=== PATIENT | female | born 1950 | race African-American/Black ===

== ENCOUNTER 2025-02-08 22:29 | Inpatient (IN) | payer OTHER ==
[~2025-02-08] VITALS: Ht 172.7 cm; Wt 103.1 kg
[2025-02-08 22:47] VITALS: PULSE 79; RESP 17; O2SAT 95
--- NOTE | 2025-02-08 23:17 | DVH ---
EXAM: CT HEAD WITHOUT CONTRAST INDICATION: LLE weakness recent CVA, headache, frequent fall TECHNIQUE: CT of the head without intravenous contrast. Radiation Dose : 1. Head: CT Dose: CTDI volume is 62.66 mGy. Dose-length product is 2136.33 mGy*cm The dose indicators for CT are the volume Computed Tomography (CT) Dose Index (CTDIvol) and the Dose Length Product (DLP), and are measured in units of mGy and mGy-cm, respectively. These indicators are not patient dose, but values generated from the CT scanner acquisition factors. The report includes radiation exposure data for exposures received during this examination. COMPARISON: None FINDINGS: There is no evidence of acute intracranial hemorrhage, extra-axial collection, mass effect, midline s hift, herniation or hydrocephalus. The ventricles, sulci and cisterns are age appropriate. The arauz-white differentiation is intact. The visualized paranasal sinuses and mastoid air cells are clear. The surrounding soft tissues and osseous structures are unremarkable. IMPRESSION: 1. No acute intracranial abnormality. Radiation optimization: All CT scans at this facility use at least one of these dose optimization bart hniques: automated exposure control mA and/or kV adjustment per patient size (includes targeted exam s where dose is matched to clinical indication) or iterative reconstruction.
--- NOTE | 2025-02-08 23:21 | DVH ---
CHEST RADIOGRAPH Indication: cp Technique: Single frontal view of the chest was obtained COMPARISON: None FINDINGS: Lines and Tubes: None Lungs: Mild diffuse increased prominence of the pulmonary vasculature. No evidence of focal consolida tion. Pleura: No effusion. No pneumothorax. Cardiomediastinal contours: Unremarkable Bones: Unremarkable IMPRESSION: 1. No acute disease. Mild diffuse increased prominence of the pulmonary vasculature.
--- NOTE | 2025-02-08 23:29 | DVH ---
EXAM: CT LS SPINE WO CONTRAST INDICATION: Lower back pain, left lower extremity weakness TECHNIQUE: Axial images of the lumbar spine have been obtained along with coronal and sagittal reform atted images. CT scans at this facility use dose modulation, iterative reconstruction, and/or weight based dosing when appropriate to reduce radiation dose to as low as reasonably achievable. COMPARISON: None FINDINGS: There is no acute displaced fracture. There are degenerative changes of the lumbar spine characteriz ed by endplate osteophytosis and intervertebral disc space narrowing, most pronounced at L4-5. There is grade 1 anterolisthesis of L4 on L5 and sclerotic changes across the opposing endplates at this le carey. There is vacuum disc phenomenon at L3-4 through L5-S1. Visualized portions of the abdomen reveal parapelvic renal cysts and nonobstructing right nephrolithiasis. LEVEL BY LEVEL DISCUSSION BELOW: T12-L1: Unremarkable. L1-L2: There is mild facet arthropathy without significant spinal canal or neural foraminal stenosis. L2-L3: A disc protrusion effaces the thecal sac. There is facet arthropathy. No high-grade spinal c anal or neural foraminal stenosis. L3-L4: A disc protrusion effaces the thecal sac and narrows the lateral recesses. There is facet art hropathy and ligamentum flavum hypertrophy. There is at least moderate right neural foraminal stenosi s. L4-L5: There is grade 1 anterolisthesis of L4 on L5 associated with unroofing of the disc. There is facet arthropathy and ligamentum flavum hypertrophy. There is severe bilateral neural foraminal sten osis and at least moderate spinal stenosis. L5-S1: There is facet arthropathy contributing to at least mild bilateral neural foraminal stenosis.. IMPRESSION: 1. No acute displaced fracture. 2. Degenerative changes of the lumbar spine as detailed, most pronounced at L4-5. 3. Sclerotic changes across the opposing endplates of L4-5, possibly degenerative in etiology, though further clinical correlation is suggested to exclude discitis/osteomyelitis. 4. If clinically indicated, MRI may be beneficial in further assessment.
--- NOTE | 2025-02-08 23:32 | ECG ---
[facility] Test Date: 2025-02-08 Test Time: 23:30:36 Pat Name: MARYSOL PETERS Department: ED Room: [facility] Gender: F Solution Architect: JORDAN : 1950 Requested By: RONALD VICTOR Order Number: [id number] Reading MD: Demetri Lopez Measurements Intervals [place] Rate: 84 P: 58 SD: 178 QRS: -2 QRSD: 112 T: 16 QT: 473 QTc: 560 Interpretive Statements Sinus rhythm Inferior infarct, old Prolonged QT interval Electronically Signed On 02-10-2025 22:48:48 PDT by Demetri Lopez Please click the below link to view image of tracing.
[2025-02-08] MEDS: ONDANSETRON HCL 4 MG/2 ML VIAL IV ONE (23:35)
[2025-02-08] MEDS: ASPirin 81 mg TAB PO ONE (23:35)
[2025-02-08 23:45] LABS: Basophils # (auto) 0.1 10 ^3/uL (0-0.2); Eosinophils # (auto) 0 10 ^3/uL (0-0.8); Lymphocytes # (auto) 0.7 10 ^3/uL (0.4-5.4); Lymphocytes % (auto) 5.5 % (10.0-50.0); Monocytes # (auto) 0.4 10 ^3/uL (0-1.3)
[2025-02-08 23:47] LABS: Basophils % (auto) 0.6 % (0.0-2.0); Mean Corpuscular Hemoglobin 25.3 pg (28.0-32.0); Mean Corpuscular Hgb Conc. 30.6 g/dL (32.0-36.0); Mean Corpuscular Volume 82.8 fL (80.0-100.0); Monocytes % (auto) 3.2 % (0.0-12.0); Neutrophils # (auto) 10.9 10 ^3/uL (1.6-8.6); Neutrophils % (auto) 90.7 % (37.0-80.0); Nucleated Red Blood Cells % 0.4 %; Platelet Count (auto) 252 10^3/uL (140-450); Red Blood Cells 1.93 10^6/uL (4.0-5.20); Red Cell Distribution Width 23.7 % (11.8-14.3); White Blood Cell 12.1 10^3/uL (4.4-10.8)
[2025-02-08 23:52] LABS: Hemoglobin 4.9 g/dL (12.2-16.2)
[2025-02-09] VITALS (12 sets, daily range): BP systolic 103–148; BP diastolic 40–61; PULSE 63–81; RESP 12–20; TEMP 97.5–98.6; O2SAT 97–100
[2025-02-09 00:02] LABS: INR 1.09 (0.9-1.15); Prothrombin Time 11.5 sec (9.3-11.8)
[2025-02-09 00:04] LABS: Alanine Aminotransferase 13 U/L (7-40); Albumin 3.6 g/dL (3.2-4.8); Alkaline Phosphatase 40 U/L (46-116); Anion Gap 15 (5-15); Aspartate Aminotransferase 11 U/L (<34); BUN/Creatinine Ratio 32.5 (10.0-20.0); Bilirubin, Total 0.3 mg/dL (0.2-1.0); Blood Urea Nitrogen 49 mg/dL (9-23); Calcium 8.7 mg/dL (8.7-10.4); Carbon Dioxide 18 mmol/L (20-31); Chloride 107 mmol/L (98-107); Glucose 301 mg/dL (74-106); Potassium 4.4 mmol/L (3.5-5.1); Sodium 140 mmol/L (136-145); Total Protein 5.2 g/dL (5.7-8.2)
--- NOTE | 2025-02-09 00:41 | ED.PDOC ---
History of Present Illness HPI Comments 75 y/o F is BIBA with sister for 4x day history of chest pain, with associated shortness of breath and bilateral leg swelling. Per EMS reports, patient describes pain as intermittent and pressure-like in quality, that occurs whenever exerting herself, moderately. Patient has a history of CHF, HLD, HTN, TIA, Xarelto and ASA use, and sciatica. Vitals were noted to have been stable and within normal limits, with exception of a systolic pressure at the 160's range and a blood glucose of 275 (no history of DM). At time of assessment, patient endorses on primary reason on calling EMS is due to her falling and tumbling, constantly, every 3-4 steps and having a headache, epigastric abdominal pain, nausea, and vomiting in addition to other aforementioned symptoms. Patient denies having any palpitations, cough, congestion, fever, chills, or further associated symptoms. Chief Complaint: Chest Pain Time Seen by MD: 22:33 Reviewed Notes: Nurses Notes, Surgical Scrub Technologist Notes, Medications, Allergies Allergies: Coded Allergies: Codeine (Verified Adverse Reaction, Mild, UPSET STOMACH, 03/20/10) Information Source: Patient, Emergency Med Personnel Mode of Arrival: EMS Severity: Moderate Timing: Days Duration: Since onset Prehospital treatment: 12 Lead EKG, Accucheck, Die Casting Supervisor Review of Systems: REVIEW OF SYSTEMS: No fever, no chills, or fatigue HEENT: No sore throat, no earache, no congestion, no neck pain. Cardiac: Chest pain. No palpitations. Lungs: Shortness of breath, no cough. GI: Abdominal pain, nausea, vomiting, no diarrhea, no constipation, : No dysuria, frequency, or urgency. No hematuria. Musculoskeletal: No joint pain , no joint swelling, . Skin: No rash, no itching. Neuro: headache, no dizziness, no weakness Vital Signs Vital Signs Date Time Temp Pulse Resp B/P (MAP) Pulse Ox O2 Delivery O2 Flow Rate FiO2 02/09/25 00:00 76 02/08/25 22:47 97.6 17 116/46 (69) 95 97.6 02/08/25 22:47 Room Air* 0 21 Physical Exam General: Awake, alert and oriented. No acute distress. Skin: Skin in warm, dry and intact. Appropriate color for ethnicity. HEENT: The head is normocephalic and atraumatic. Conjunctivae are clear without exudates or hemorrhage. Sclera is non-icteric. EOM are intact. No signs of nystagmus. Eyelids are normal in appearance without swelling or lesions. Oral mucosa is pink and moist Neck: The neck is supple with normal range of motion. No JVD. Cardiac: Heart rate and rhythm are normal. No murmurs, gallops, or rubs are auscultated. Respiratory: No signs of respiratory distress. Lung sounds are clear in all lobes bilaterally without rales, rhonchi, or wheezes. Abdominal: Abdomen is soft, non-tender without distention, guarding or rigidity. Bowel sounds are present and normoactive in all four quadrants. Extremities: Bilateral lower extremity edema, nonpitting. Left lower extremity is weaker than the right lower extremity. Upper and lower extremities are atraumatic in appearance without deformity. Neurological: The patient is awake, alert and oriented to person, place, and time with normal speech. Speech is clear. There is no facial asymmetry. Psychiatric: Appropriate mood and affect. Good judgement and insight. Past Medical History PAST MEDICAL HISTORY: CHF, High Lipids, HTN, TIA Past Medical History (Other): Sciatica Surgical History: Denies all surgeries ALTITUDE CHAMBER TECHNICIAN History: Denies all ALTITUDE CHAMBER TECHNICIAN Hx Family History Family History: Unknown Social History Smoker: Non-Smoker Alcohol: Denies ETOH Use Drugs: Denies Drug Use Lives In: Home Was a procedure done? Was a procedure done?: No EKG EKG #1: Pulse Rate (adult): 88 [place]: Normal Cardiac Rhythm: NSR Block: None Hypertrophy: None ST: Normal Comments No STEMI EKG #2: Pulse Rate (adult): 84 [place]: Normal Cardiac Rhythm: NSR Block: None Hypertrophy: None ST: Normal EKG #3: Pulse Rate (adult): 80 [place]: Normal Cardiac Rhythm: NSR Block: None Hypertrophy: None ST: Normal Differential Dx Considerations may include: Differential diagnoses considered include acute ischemic coronary syndrome, aortic dissection, cardiac tamponade, mediastinitis, pulmonary embolus, pneumothorax, tension pneumothorax, esophageal rupture, coronary artery vasospasm, myocarditis, pericarditis, pneumonia, pulmonary edema, esophageal tear, pancreatitis, aortic stenosis, dilated cardiomyopathy, hypertrophic cardiomyopathy, mitral valve prolapse, malignancy, pleuritis, pneumomediastinum, primary pulmonary hypertension, cholecystitis, esophageal spasm, esophagus, gastritis, GERD, peptic ulcer disease, costochondritis, fibromyalgia, rib f racture, herpes zoster, radicular syndromes, thoracic outlet syndrome, somatization. X-Ray, Labs, Meds, VS Vital Signs Date Time Temp Pulse Resp B/P (MAP) Pulse Ox O2 Delivery O2 Flow Rate FiO2 02/09/25 00:00 76 02/08/25 23:30 84 02/08/25 23:10 85 02/08/25 22:47 97.6 79 17 116/46 (69) 95 97.6 02/08/25 22:47 79 17 95 Room Air* 0 21 02/08/25 22:39 97.6 86 18 164/114 (131) 96 97.6 02/08/25 22:31 88 Lab Test 02/09/25 00:13 02/08/25 23:26 Range/Units Iron Level Pending Total Iron Binding Capacity Pending Percent Iron Saturation Pending Troponin I High Sensitivity 6 5 </=34 ng/L White Blood Count 12.1 H 4.4-10.8 10^3/uL Red Blood Count 1.93 L 4.0-5.20 10^6/uL Hemoglobin 4.9 *L 12.2-16.2 g/dL Hematocrit 16.0 L 36.0-46.0 % Mean Corpuscular Volume 82.8 80.0-100.0 fL Mean Corpuscular Hemoglobin 25.3 L 28.0-32.0 pg Mean Corpuscular Hemoglobin Concent 30.6 L 32.0-36.0 g/dL Red Cell Distribution Width 23.7 H 11.8-14.3 % Platelet Count 252 140-450 10^3/uL Mean Platelet Volume 8.7 6.9-10.8 fL Neutrophils (%) (Auto) 90.7 H 37.0-80.0 % Lymphocytes (%) (Auto) 5.5 L 10.0-50.0 % Monocytes (%) (Auto) 3.2 0.0-12.0 % Eosinophils (%) (Auto) 0.0 0.0-7.0 % Basophils (%) (Auto) 0.6 0.0-2.0 % Neutrophils # (Auto) 10.9 H 1.6-8.6 10 ^3/uL Lymphocytes # (Auto) 0.7 0.4-5.4 10 ^3/uL Monocytes # (Auto) 0.4 0-1.3 10 ^3/uL Eosinophils # (Auto) 0 0-0.8 10 ^3/uL Basophils # (Auto) 0.1 0-0.2 10 ^3/uL Nucleated Red Blood Cells 0.4 % Prothrombin Time 11.5 9.3-11.8 sec Prothrombin Time INR 1.09 0.9-1.15 Sodium Level 140 136-145 mmol/L Potassium Level 4.4 3.5-5.1 mmol/L Chloride Level 107 98-107 mmol/L Carbon Dioxide Level 18 L 20-31 mmol/L Anion Gap 15 5-15 Blood Urea Nitrogen 49 H 9-23 mg/dL Creatinine 1.51 H 0.550-1.02 mg/dL Glomerular Filtration Rate Calc 36 >90 mL/min BUN/Creatinine Ratio 32.5 H 10.0-20.0 Serum Glucose 301 H 74-106 mg/dL Calcium Level 8.7 8.7-10.4 mg/dL Total Bilirubin 0.3 0.2-1.0 mg/dL Aspartate Amino Transferase (AST) 11 <34 U/L Alanine Aminotransferase (ALT) 13 7-40 U/L Alkaline Phosphatase 40 L 46-116 U/L B-Type Natriuretic Peptide 19.61 0-100 pg/mL Total Protein 5.2 L 5.7-8.2 g/dL Albumin 3.6 3.2-4.8 g/dL Current Medications Medications (Trade) Dose Ordered Sig/Chris Route Start Time Stop Time Status Last Admin Aspirin 324 mg ONCE ONCE PO 02/08/25 23:00 02/08/25 23:01 DC 02/08/25 23:35 Ondansetron HCl (Zofran) 4 mg ONCE ONCE IV 02/08/25 23:15 02/08/25 23:16 DC 02/08/25 23:[address] [address] Ph: [phone] DIAGNOSTIC IMAGING Diagnostic Imaging Report : [id number] Signed PATIENT: MARYSOL PETERS ACCT: [id number] UNIT: [id number] : 1950 LOC: ER ROOM / BED: / AGE / SEX: 75 / F ADM STATUS: REG ER SERVICE 2246 ORDERING PHYSICIAN: RONALD VICTOR MD PROCEDURE(s): LS2CT - LS SPINE WO CONTRAST REASON: Lower back pain, left lower extremity weakness ORDER NUMBER(s): [id number], ACCESSION NUMBER(s): [id number] EXAM: CT LS SPINE WO CONTRAST INDICATION: Lower back pain, left lower extremity weakness TECHNIQUE: Axial images of the lumbar spine have been obtained along with coronal and sagittal reformatted images. CT scans at this facility use dose modulation, iterative reconstruction, and/or weight based dosing when appropriate to reduce radiation dose to as low as reasonably achievable. COMPARISON: None FINDINGS: There is no acute displaced fracture. There are degenerative changes of the lumbar spine characterized by endplate osteophytosis and intervertebral disc space narrowing, most pronounced at L4-5. There is grade 1 anterolisthesis of L4 on L5 and sclerotic changes across the opposing endplates at this level. There is vacuum disc phenomenon at L3-4 through L5-S1. Visualized portions of the abdomen reveal parapelvic renal cysts and nonobstructing right nephrolithiasis. LEVEL BY LEVEL DISCUSSION BELOW: T12-L1: Unremarkable. L1-L2: There is mild facet arthropathy without significant spinal canal or neural foraminal stenosis. L2-L3: A disc protrusion effaces the thecal sac. There is facet arthropathy. No high-grade spinal canal or neural foraminal stenosis. L3-L4: A disc protrusion effaces the thecal sac and narrows the lateral recesses. There is facet arthropathy and ligamentum flavum hypertrophy. There is at least moderate right neural foraminal stenosis. L4-L5: There is grade 1 anterolisthesis of L4 on L5 associated with unroofing of the disc. There is facet arthropathy and ligamentum flavum hypertrophy. There is severe bilateral neural foraminal stenosis and at least moderate spinal stenosis. L5-S1: There is facet arthropathy contributing to at least mild bilateral neural foraminal stenosis.. IMPRESSION: 1. No acute displaced fracture. 2. Degenerative changes of the lumbar spine as detailed, most pronounced at L4- 5. 3. Sclerotic changes across the opposing endplates of L4-5, possibly degenerative in etiology, though further clinical correlation is suggested to exclude discitis/osteomyelitis. 4. If clinically indicated, MRI may be beneficial in further assessment. ATED BY: NIMO THOMAS MD DICTATED DATE/TIME: 02/08/252326 SIGNED BY: NIMO THOMAS MD SIGNED DATE/TIME: 02/08/252326 CC: [place] [address] Ph: [phone] DIAGNOSTIC IMAGING Diagnostic Imaging Report : [id number] Signed PATIENT: MARYSOL PETERS ACCT: [id number] UNIT: [id number] : 1950 LOC: ER ROOM / BED: / AGE / SEX: 75 / F ADM STATUS: REG ER SERVICE 45 ORDERING PHYSICIAN: RONALD VICTOR MD PROCEDURE(s): HWOCT - HEAD WITHOUT CONTRAST REASON: LLE weakness recent CVA, headache, frequent fall ORDER NUMBER(s): [id number], ACCESSION NUMBER(s): [id number] EXAM: CT HEAD WITHOUT CONTRAST INDICATION: LLE weakness recent CVA, headache, frequent fall TECHNIQUE: CT of the head without intravenous contrast. Radiation Dose : 1. Head: CT Dose: CTDI volume is 62.66 mGy. Dose-length product is 2136.33 mGy*cm The dose indicators for CT are the volume Computed Tomography (CT) Dose Index (CTDIvol) and the Dose Length Product (DLP), and are measured in units of mGy and mGy-cm, respectively. These indicators are not patient dose, but values generated from the CT scanner acquisition factors. The report includes radiation exposure data for exposures received during this examination. COMPARISON: None FINDINGS: There is no evidence of acute intracranial hemorrhage, extra-axial collection, mass effect, midline shift, herniation or hydrocephalus. The ventricles, sulci and cisterns are age appropriate. The arauz-white differentiation is intact. The visualized paranasal sinuses and mastoid air cells are clear. The surrounding soft tissues and osseous structures are unremarkable. IMPRESSION: 1. No acute intracranial abnormality. Radiation optimization: All CT scans at this facility use at least one of these dose optimization techniques: automated exposure control mA and/or kV adjustment per patient size (includes targeted exams where dose is matched to clinical indication) or iterative reconstruction. ATED BY: DAVI ARCOS MD DICTATED DATE/TIME: 02/08/252314 SIGNED BY: DAVI ARCOS MD SIGNED DATE/TIME: 02/08/252314 CC: [place] [address] Ph: [phone] DIAGNOSTIC IMAGING Diagnostic Imaging Report : [id number] Signed PATIENT: MARYSOL PETERS ACCT: [id number] UNIT: [id number] : 1950 LOC: ER ROOM / BED: / AGE / SEX: 75 / F ADM STATUS: REG ER SERVICE 45 ORDERING PHYSICIAN: RONALD VICTOR MD PROCEDURE(s): CXR1 - CHEST XRAY 1 VIEW REASON: cp ORDER NUMBER(s): [id number], ACCESSION NUMBER(s): [id number] CHEST RADIOGRAPH Indication: cp Technique: Single frontal view of the chest was obtained COMPARISON: None FINDINGS: Lines and Tubes: None Lungs: Mild diffuse increased prominence of the pulmonary vasculature. No evidence of focal consolidation. Pleura: No effusion. No pneumothorax. Cardiomediastinal contours: Unremarkable Bones: Unremarkable IMPRESSION: 1. No acute disease. Mild diffuse increased prominence of the pulmonary vasculature. ATED BY: DAVI ARCOS MD DICTATED DATE/TIME: 02/08/252318 SIGNED BY: DAVI ARCOS MD SIGNED DATE/TIME: 02/08/252318 CC: Time of 1ST Reevaluation: 23:03 Reevaluation 1ST: Unchanged Patient Education/Counseling: Other (Need for admission) Family Education/Counseling: Other (Need for admission) SEPSIS Sepsis Screen Date sepsis recognized/suspect: Feb 08, 2025 Time Sepsis recognized/suspect: 2246 Recent Procedure: No On Antibiotic Therapy: No Respiratory Rate >20: No Heart Rate >90: No Temp<36 C (96.8 F) or >38.3 C: No SBP <90 or MAP <65 mmHG: No New Acute Mental Status Change: No Is the patient on CPAP, BIPAP,: No Physician Orders Vital Signs Q1HR (02/08/25 22:46) Chest Xray 1 View (02/08/25 22:46) Saline Lock (02/08/25 22:46) Die Casting Supervisor (02/08/25 ) Electrocardigram (02/08/25 23:46) Head Without Contrast (02/08/25 22:46) Ls Spine Wo Contrast (02/08/25 22:46) Urinalysis (02/08/25 22:46) Die Casting Supervisor (02/08/25 ) Type And Screen (02/08/25 23:53) Stool Occult Blood (02/08/25 23:53) Vital Signs Date Time Temp Pulse Resp B/P (MAP) Pulse Ox O2 Delivery O2 Flow Rate FiO2 02/09/25 00:00 76 02/08/25 23:30 84 02/08/25 23:10 85 02/08/25 22:47 97.6 79 17 116/46 (69) 95 97.6 02/08/25 22:47 79 17 95 Room Air* 0 21 02/08/25 22:39 97.6 86 18 164/114 (131) 96 97.6 02/08/25 22:31 88 Laboratory Tests Test 02/08/25 23:26 White Blood Count 12.1 10^3/uL (4.4-10.8) H Medications Medications Dose Ordered Sig/Chris Route Start Time Stop Time Status Last Admin Dose Admin Aspirin 324 mg ONCE ONCE PO 02/08/25 23:00 02/08/25 23:01 DC 02/08/25 23:35 Ondansetron HCl 4 mg ONCE ONCE IV 02/08/25 23:15 02/08/25 23:16 DC 02/08/25 23:35 Departure 1 Departure Time of Disposition: 00:40 Impression: Primary Impression: Severe anemia Additional Impressions: Anticoagulated on rivaroxaban Frequent falls Chest pain Prolonged QT interval Disposition: ADMITTED INPATIENT Condition: Stable Comments Patient admitted to hospitalist service for further treatment, evaluation and monitoring. Extensive evaluation was performed in attempt to identify or rule out: (See differential diagnosis section) The following tests were ordered, and results were reviewed by me and discussed with patient: (See diagnostic results section) The following test were independently interpreted by me: N/A I reviewed and agreed with the following test results read by other providers: Lumbar spine and head CT and chest x-ray I reviewed the following notes from the pt's past medical encounters: March 20, 2010 for hypertension Additional information was gathered from interviewing the following independent historians: EMS, sister Discussion of management or test interpretation with external physician/other qualified health childcare provider: N/A Addressed an acute or chronic illness that poses a threat to life or bodily function: Severe anemia requiring blood transfusion Decision regarding hospitalization or escalation of hospital level of care: Risk and benefits of admission for further treatment of patient's condition was considered. Due to patient's current clinical condition, high risk of decline and poor outcome if discharged and need for further inpatient management and monitoring, patient will be admitted to the hospital. Drug therapy requiring intensive monitoring for toxicity: N/A Parenteral controlled substances: N/A Decision regarding elective major surgery with identified patient or procedure risk factors: N/A Decision regarding emergency major surgery: N/A Decision not to resuscitate or to de-escalate care because of poor prognosis: N/A Diagnosis or treatment significantly limited by social determinants of health: N/A Critical Care Note Critical Care Time?: Yes (35 min-critical care time only) Critical care comment: Due to a high probability of clinically significant, life threatening deterioration, the patient required my highest level of preparedness to intervene emergently and I personally spent this critical care time directly and personally managing the patient. This critical care time included obtaining a history; examining the patient; pulse oximetry; ordering and review of studies; arranging urgent treatment with development of a management plan; evaluation of patient's response to treatment; frequent reassessment; and, discussions with ot her providers. This critical care time was performed to assess and manage the high probability of imminent, life-threatening deterioration that could result in multi-organ failure. It was exclusive of separately billable procedures and treating other patients and teaching time. Please see my other sections and the rest of the note for further information on patient assessment and treatment. Stability Stability form required: No Heart Score Heart Score: Heart Score Response (Comments) Value History Moderate Suspicious 1 EKG Normal 0 Age >65 2 Risk Factors >3 or Hx ASHD 2 Troponin Normal limit 0 Total 5 I personally scribed for RONALD VICTOR MD ([email or web address]) on 02/09/25 at 02:50. Electronically submitted by Tamir Stein [email or web address]). RONALD VICTOR MD Feb 09, 2025 00:41
[2025-02-09] MEDS ORDERED: ONDANSETRON HCL 4 MG/2 ML VIAL IV PRN (01:00)
--- NOTE | 2025-02-09 01:45 | ECG ---
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
--- NOTE | 2025-02-09 04:06 | DVHHP2 ---
History of Present Illness Reason for Visit: Shortness of breath History of Present Illness 75-year-old female presents for evaluation of shortness for breath. Patient endorses a four day history of worsening shortness for breath with generalized weakness. She also reports that yesterday she has mild chest pain. Currently the pain has subsided. She reports a history of anemia and last being transfused on . Denies melena or hematuria. No abdominal pain. Other acute complaints. Past Medical History Hypertension, dyslipidemia, TIA Past Surgical History Denies Family History Noncontributory Smoke: No ALCOHOL: none Drugs: None Lives: with Family Review of Systems Review of Systems Review of systems are currently negative otherwise addressed in HPI. Allergies: Coded Allergies: Codeine (Verified Adverse Reaction, Mild, UPSET STOMACH, 03/20/10) Medications Current Medications Medications Dose Ordered Sig/Chris Route Start Time Stop Time Status Last Admin Dose Admin Losartan Potassium 100 mg DAILY PO 02/09/25 10:00 Ferrous Sulfate 325 mg BIDWM PO 02/09/25 08:00 Ondansetron HCl 4 mg Q4HP PRN IV 02/09/25 01:00 Exam Vital Signs Vital Signs Date Time Temp Pulse Resp B/P (MAP) Pulse Ox O2 Delivery O2 Flow Rate FiO2 02/09/25 03:09 98.2 77 16 123/52 98.2 02/09/25 01:00 94 02/08/25 22:47 Room Air* 0 21 Exam Gen: 75-year-old female in mild distress Skin: Warm, dry, normal color and texture, no rash. HEENT: Normocephalic atraumatic, mucous membranes moist and pink. Neck: Cervical and supraclavicular nodes normal without enlargement, trachea is midline, thyroid gland is normal without masses. Pulmonary: Clear to auscultation and percussion bilaterally. Cardiac: Regular rate and rhythm. No murmur Abdomen: Soft, nontender, nondistended, bowel sounds present all 4 quadrants, no guarding, no rigidity, no organomegaly. Extremities: No cyanosis, clubbing, no edema Neuro: Cranial nerves II through XII grossly intact, normal affect and speech, no focal motor deficits. Labs/Xrays ORDERING PHYSICIAN: RONALD VICTOR MD PROCEDURE(s): HWOCT - HEAD WITHOUT CONTRAST REASON: LLE weakness recent CVA, headache, frequent fall ORDER NUMBER(s): [id number], ACCESSION NUMBER(s): [id number] EXAM: CT HEAD WITHOUT CONTRAST INDICATION: LLE weakness recent CVA, headache, frequent fall TECHNIQUE: CT of the head without intravenous contrast. Radiation Dose : 1. Head: CT Dose: CTDI volume is 62.66 mGy. Dose-length product is 2136.33 mGy*cm The dose indicators for CT are the volume Computed Tomography (CT) Dose Index (CTDIvol) and the Dose Length Product (DLP), and are measured in units of mGy and mGy-cm, respectively. These indicators are not patient dose, but values generated from the CT scanner acquisition factors. The report includes radiation exposure data for exposures received during this examination. COMPARISON: None FINDINGS: There is no evidence of acute intracranial hemorrhage, extra-axial collection, mass effect, midline shift, herniation or hydrocephalus. The ventricles, sulci and cisterns are age appropriate. The arauz-white differentiation is intact. The visualized paranasal sinuses and mastoid air cells are clear. The surrounding soft tissues and osseous structures are unremarkable. IMPRESSION: 1. No acute intracranial abnormality. Radiation optimization: All CT scans at this facility use at least one of these dose optimization techniques: automated exposure control mA and/or kV adjustment per patient size (includes targeted exams where dose is matched to clinical indication) or iterative reconstruction. Labs Test 02/09/25 02:45 02/09/25 00:13 02/08/25 23:26 Range/Units Troponin I High Sensitivity 7 </=34 ng/L White Blood Count 12.1 H 4.4-10.8 10^3/uL Red Blood Count 1.93 L 4.0-5.20 10^6/uL Hemoglobin 4.9 *L 12.2-16.2 g/dL Hematocrit 16.0 L 36.0-46.0 % Mean Corpuscular Volume 82.8 80.0-100.0 fL Mean Corpuscular Hemoglobin 25.3 L 28.0-32.0 pg Mean Corpuscular Hemoglobin Concent 30.6 L 32.0-36.0 g/dL Red Cell Distribution Width 23.7 H 11.8-14.3 % Platelet Count 252 140-450 10^3/uL Mean Platelet Volume 8.7 6.9-10.8 fL Neutrophils (%) (Auto) 90.7 H 37.0-80.0 % Lymphocytes (%) (Auto) 5.5 L 10.0-50.0 % Monocytes (%) (Auto) 3.2 0.0-12.0 % Eosinophils (%) (Auto) 0.0 0.0-7.0 % Basophils (%) (Auto) 0.6 0.0-2.0 % Neutrophils # (Auto) 10.9 H 1.6-8.6 10 ^3/uL Lymphocytes # (Auto) 0.7 0.4-5.4 10 ^3/uL Monocytes # (Auto) 0.4 0-1.3 10 ^3/uL Eosinophils # (Auto) 0 0-0.8 10 ^3/uL Basophils # (Auto) 0.1 0-0.2 10 ^3/uL Nucleated Red Blood Cells 0.4 % Prothrombin Time 11.5 9.3-11.8 sec Prothrombin Time INR 1.09 0.9-1.15 Sodium Level 140 136-145 mmol/L Potassium Level 4.4 3.5-5.1 mmol/L Chloride Level 107 98-107 mmol/L Carbon Dioxide Level 18 L 20-31 mmol/L Anion Gap 15 5-15 Blood Urea Nitrogen 49 H 9-23 mg/dL Creatinine 1.51 H 0.550-1.02 mg/dL Glomerular Filtration Rate Calc 36 >90 mL/min BUN/Creatinine Ratio 32.5 H 10.0-20.0 Serum Glucose 301 H 74-106 mg/dL Calcium Level 8.7 8.7-10.4 mg/dL Total Bilirubin 0.3 0.2-1.0 mg/dL Aspartate Amino Transferase (AST) 11 <34 U/L Alanine Aminotransferase (ALT) 13 7-40 U/L Alkaline Phosphatase 40 L 46-116 U/L B-Type Natriuretic Peptide 19.61 0-100 pg/mL Total Protein 5.2 L 5.7-8.2 g/dL Albumin 3.6 3.2-4.8 g/dL Assessment/Plan Assessment/Plan Assessment Symptomatic anemia Hypertension Obesity Plan Admit the patient [place] [facility] [place] 2 units of packed red cells GI consultation Hold Xarelto until cleared by GI Resume home medications Continue treatment per orders. Plan discussed with: Patient My Orders Orders - JUNA ALANIZ Procedure Category Date Status Time Stool Occult Blood LAB 02/09/25 Logged 00:53 Losartan Tablet PHA 02/09/25 In Process (Cozaar Tablet) 10:00 Iron Panel LAB 02/09/25 In Process 00:53 * Gi D[facility] Assurance Manager Insurance CONS 02/09/25 Transmitted 00:53 Ferrous Sulfate Tablet PHA 02/09/25 In Process 08:00 Admit ADMIT 02/09/25 Transmitted 00:53 Ondansetron Hcl PHA 02/09/25 In Process (Zofran) 01:00 Complete Blood Count LAB 02/10/25 Verified 04:00 Cardiac DIET 02/09/25 Transmitted Diet-2gna,Lofat,Lochol Breakfast Condition: Stable ZEB 02/09/25 In Process 00:53 Bedrest With Bathroom ZEB 02/09/25 In Process Privileg 00:53 Date of Service: Feb 08, 2025 Billing Provider: JUAN ALANIZ Common Visit Codes: [id number] INP/OBS CARE (HIGH) JUAN ALANIZ Feb 09, 2025 04:06
[2025-02-09 08:59] LABS: Urine Bacteria FEW /hpf (None Seen); Urine Blood Negative /uL (Negative); Urine Clarity Clear (Clear); Urine Color Light-Yellow (Yellow); Urine Hyaline Cast MANY /lpf (0 - 2); Urine Protein, UAD Negative (Negative); Urine Specific Gravity 1.018 (1.001-1.035); Urine Squamous Epithelial Cell None Seen /hpf (<5); Urine Urobilinogen Normal (Negative); Urine WBC 1 /HPF (0-5)
[2025-02-09] MEDS: PANTOPRAZOLE 40 MG TAB PO SCH (09:22)
[2025-02-09] MEDS: FERROUS SULFATE 325mg EC TAB PO SCH (09:22)
[2025-02-09 10:15] LABS: % Iron Saturation 12.3 % (15-50)
[2025-02-09] MEDS: LOSARTAN POTASSIUM 50 MG TAB PO SCH (10:31)
--- NOTE | 2025-02-09 12:09 | ECG ---
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
--- NOTE | 2025-02-09 12:15 | DVHINCON2 ---
GI Consult Consult Note GI consult note Date of Consultation:02/09/2025 Chief Complaint:severe anemia Referring Physician:Jaime JONES H&P: 75-year-old female presented to ER with complains of shortness of breath and chest pain. Also complaining of multiple falls in the last few weeks. Patient had epigastric abdominal pain radiating into her chest yesterday, no pain at this time. Had nausea and vomiting yesterday, mostly clear to yellow with streaks of red blood. Denies melena or red blood in stool. Diagnosed with anemia in 2016, multiple EGDs and colonoscopies in past. Last EGD and colonoscopy four years ago gastro group within normal limits per patient. Patient has an appointment tomorrow with gastro group. Patient underwent capsule endoscopy which got stuck for few months, this was done 6-7 years ago. Patient also being seen by Dr. Alonso in 2018, and all the workup was normal per patient. Patient takes iron supplements twice a day. Was treated with Eliquis status post TIA which was stopped in December, and was switched to Xarelto. Last blood transfusion in December 2024 Past Medical History: Hypertension, dyslipidemia, TIA Past Surgical History: denies Social History: NO smoking, drinking ETOH and use of illegal drugs. Family History: noncontributory Review of Systems: Constitutional: no fever, chill, weight loss HEENT: no eye pain, no hearing loss, no oral lesion, no scleral icterus Heart: no chest pain, no chest pressure Lung: no cough, no dyspnea with exertion Abdomen: see HPI Physical exam: General: NAD, AAOX3 Chest: lung sims clear to auscultation Heart: RRR, no murmur Abdomen: non-distended, no tenderness to palpation, +BS Labs: Labs Test 02/09/25 08:52 02/09/25 02:45 02/09/25 00:13 02/08/25 23:26 Range/Units Urine Color Light-yellow Yellow Urine Clarity Clear Clear Urine pH 5.0 5.0-9.0 Urine Specific [place] 1.018 1.001-1.035 Urine Protein Negative Negative Urine Ketones Negative Negative Urine Blood Negative Negative /uL Urine Nitrite Negative Negative Urine Bilirubin Negative Negative Urine Urobilinogen Normal Negative mg/dL Urine Leukocyte Esterase Negative Negative /uL Urine RBC 1 0 - 4 /hpf Urine Microscopic WBC 1 0-5 /HPF Urine Squamous Epithelial Cells None seen <5 /hpf Urine Bacteria Few H None Seen /hpf Urine Hyaline Casts Many 0 - 2 /lpf Urine Glucose Normal Normal mg/dL Troponin I High Sensitivity 7 </=34 ng/L Iron Level 36 L 50-170 ug/dL Total Iron Binding Capacity 293 250-425 ug/dL Percent Iron Saturation 12.3 L 15-50 % White Blood Count 12.1 H 4.4-10.8 10^3/uL Red Blood Count 1.93 L 4.0-5.20 10^6/uL Hemoglobin 4.9 *L 12.2-16.2 g/dL Hematocrit 16.0 L 36.0-46.0 % Mean Corpuscular Volume 82.8 80.0-100.0 fL Mean Corpuscular Hemoglobin 25.3 L 28.0-32.0 pg Mean Corpuscular Hemoglobin Concent 30.6 L 32.0-36.0 g/dL Red Cell Distribution Width 23.7 H 11.8-14.3 % Platelet Count 252 140-450 10^3/uL Mean Platelet Volume 8.7 6.9-10.8 fL Neutrophils (%) (Auto) 90.7 H 37.0-80.0 % Lymphocytes (%) (Auto) 5.5 L 10.0-50.0 % Monocytes (%) (Auto) 3.2 0.0-12.0 % Eosinophils (%) (Auto) 0.0 0.0-7.0 % Basophils (%) (Auto) 0.6 0.0-2.0 % Neutrophils # (Auto) 10.9 H 1.6-8.6 10 ^3/uL Lymphocytes # (Auto) 0.7 0.4-5.4 10 ^3/uL Monocytes # (Auto) 0.4 0-1.3 10 ^3/uL Eosinophils # (Auto) 0 0-0.8 10 ^3/uL Basophils # (Auto) 0.1 0-0.2 10 ^3/uL Nucleated Red Blood Cells 0.4 % Prothrombin Time 11.5 9.3-11.8 sec Prothrombin Time INR 1.09 0.9-1.15 Sodium Level 140 136-145 mmol/L Potassium Level 4.4 3.5-5.1 mmol/L Chloride Level 107 98-107 mmol/L Carbon Dioxide Level 18 L 20-31 mmol/L Anion Gap 15 5-15 Blood Urea Nitrogen 49 H 9-23 mg/dL Creatinine 1.51 H 0.550-1.02 mg/dL Glomerular Filtration Rate Calc 36 >90 mL/min BUN/Creatinine Ratio 32.5 H 10.0-20.0 Serum Glucose 301 H 74-106 mg/dL Calcium Level 8.7 8.7-10.4 mg/dL Total Bilirubin 0.3 0.2-1.0 mg/dL Aspartate Amino Transferase (AST) 11 <34 U/L Alanine Aminotransferase (ALT) 13 7-40 U/L Alkaline Phosphatase 40 L 46-116 U/L B-Type Natriuretic Peptide 19.61 0-100 pg/mL Total Protein 5.2 L 5.7-8.2 g/dL Albumin 3.6 3.2-4.8 g/dL Imaging: Assessment: severe anemia Hx TIA on xarelto Plan: -discussed c Dr Byron Vela cardiology consult requesting cardiac clearance for possible GI procedures as needed protonix, carafate, and zofran clear liquid diet stool for occult bld possible plan for EGD if cleared by cardiology Hold blood thinners monitor labs, transfuse if Hgb less than 7 Plan discussed c pt, and RN Thank you for this consult Date of Service: Feb 09, 2025 Billing Provider: ALEKSANDR GARCIA Common Visit Codes: CONSULT ONLY Consultation Codes: [id number] CONSULT <60MIN ALEKSANDR GARCIA Feb 09, 2025 12:15
[2025-02-09 13:37] LABS: Hematocrit 21.6 % (36.0-46.0)
[2025-02-09] MEDS ORDERED: DEXTROSE (50%) 50ML SYRG IV PRN (13:45)
[2025-02-09] MEDS ORDERED: LOSA100T33 (13:48)
[2025-02-09] MEDS ORDERED: ASPI-325 PO (13:48)
[2025-02-09] MEDS ORDERED: ATOR-47 PO (13:48)
[2025-02-09] MEDS ORDERED: RIV20T PO (13:48)
[2025-02-09] MEDS ORDERED: CHOL50007 PO (13:48)
[2025-02-09] MEDS ORDERED: FERR325T20 PO (13:48)
--- NOTE | 2025-02-09 14:24 | DVHINCON2 ---
Date Seen: Feb 09, 2025 Referring Physician MD Carl Reason for Consultation Chest pain, cardiac risk stratification History of Present Illness This is a pleasant 75-year-old female who presented to the emergency room with a chief complaint of chest pain. The patient complaint of chest pain described as substernal, radiating to the left inframammary area, pressure-like, intermittent, and associated with palpitations, fatigue, SOB, visual disturbance, and some dizziness prompting her to call 911. She underwent multiple twelve lead electrocardiograms x 3 revealing a sinus rhythm with a prolonged QTc up to 560 ms. Serial troponin levels are negative. At time of assessment the patient denied any further cardiac symptoms. She was found with Hgb/Hct levels of 4.9/16.0 undergoing PRBC transfusions x 2 units with latest Hgb/Hct levels of 7.0/21.6. Denies hematemesis, hematuria, hematochezia, black tarry stools, epistaxis, or oral bleed. Reports a recent admission to [facility] with discharge on 01/14/25. At that time, she was diagnosed with an acute CVA and acute anemia for which she underwent a blood transfusion and sent home on Xarelto 20 mg HS and ASA 81mg QD. She was previously on Eliquis 5 mg BID. Denies any history of cardiac arrhythmias. Follows up in the outpatient setting with Dr. Carbajal with upcoming appointment of 04/23/2025 at 0800. Significant medical history includes hypertension, dyslipidemia, multiple cerebrovascular accidents on Xarelto and ASA therapy, chronic iron deficiency anemia since 15 y.o., left lower extremity sciatica, and obesity. Past Medical History Past medical history reviewed. No other significant than mentioned above. Past Surgical History Salpingectomy Right carpal tunnel Tonsillectomy Bilateral hammertoes Family History: Diabetes mellitus G8 FATHER Hypertension G8 MOTHER Family History Family history reviewed. Social History Denies the use of illicit drugs or tobacco use. Admits to rarely alcohol use. Allergies: Coded Allergies: Codeine (Verified Adverse Reaction, Mild, UPSET STOMACH, 03/20/10) Home Meds Reported Medications Cholecalciferol (VITAMIN D3) 5,000 Unit Cap, 1 CAP PO DAILY 02/09/25 Rivaroxaban (Xarelto Tablet) 20 Mg Tb, 1 TAB PO DAILY 02/09/25 Losartan Potassium & Hydrochlo (Losartan Potassium/Hydroc) 1 Tab Tab 02/09/25 Ferrous Sulfate (Ferosul) 325 Mg Tab, 1 TAB PO DAILY 02/09/25 Atorvastatin Calcium (ATORVASTATIN CALCIUM) 80 Mg Tab, 1 TAB PO DAILY 02/09/25 Aspirin (Aspirin Low Dose) 81 Mg Tab, 1 TAB PO DAILY 02/09/25 Home Meds Home medications reviewed. Current Medications Current Medications Medications (Trade) Dose Ordered Sig/Chris Route PRN Reason Start Time Stop Time Status Last Admin Losartan Potassium (Cozaar Tablet) 100 mg DAILY PO 02/09/25 10:00 02/09/25 10:31 Ferrous Sulfate 325 mg BIDWM PO 02/09/25 08:00 02/09/25 09:22 Ondansetron HCl (Zofran) 4 mg Q4HP PRN IV NAUSEA / VOMITING 02/09/25 01:00 Pantoprazole Sodium (Protonix Tablet) 40 mg DAILY@0600 PO 02/09/25 06:00 02/09/25 09:22 Sucralfate (Carafate Susp) 1 gm BID@0600,2200 PO 02/09/25 22:00 Diagnostic Test (Pha) (Accu-Chek Comfort Curve T) 1 strip ACHS 02/09/25 17:00 Insulin Human Regular (InsuLIN R) ACHS SC 02/09/25 17:00 Dextrose 50 ml UD PRN IV Blood Sugar LESS THAN 60 02/09/25 13:45 Review of Systems Constitutional: Generalized weakness, fatigue Ears, Nose, & Throat: No symptom reported Eyes: No symptom reported Neurological: Dizziness, visual disturbance Pulmonary/Respiratory: SOB Cardiovascular: Chest pain Gastrointestinal: No symptom reported Genitourinary: No symptom reported Musculoskeletal: No symptom reported Skin: No symptom reported Psychiatric: No symptom reported Endocrine: No symptom reported Hemotologic/Lymphatic: No symptom reported Vital Signs Vital Signs Date Time Temp Pulse Resp B/P (MAP) Pulse Ox O2 Delivery O2 Flow Rate FiO2 02/09/25 12:51 97.8 72 20 114/56 (75) 98 97.8 02/09/25 07:30 Room Air* 0 21 Physical Exam General Appearance: Cooperative. Well developed. Well nourished. In no acute distress Head Exam: Normal inspection Neck Exam: Normal inspection. Non-tender. Normal alignment Pulmonary/Respiratory: Chest non-tender. Clear bilateral breath sounds Cardiovascular/Chest: Regular rate and rhythm. S1, S2. Sinus rhythm with a prolonged QTc. No murmurs. No JVD. Peripheral Pulses: 2+ Radial (R). 2+ Radial (L). 2+ Pedal (R). 2+ Pedal (L) Abdominal Exam: Normal bowel sounds. Soft. Nontender. No hepatospenomegaly. No masses Ankle Exam: Negative ankle edema Lower extremities: Negative lower extremity edema Neuro/Mental Status: A&O x4. Coherent Thoughts/Psych: Normal thought pattern. Appropriate mood and affect. Good judgement and insight Appearance: In no acute distress Skin Exam: Normal inspection. Pale color. Warm. Dry Labs/Diagnostic Data Labs Test 02/09/25 13:16 02/09/25 12:31 02/09/25 08:52 02/09/25 02:45 Range/Units Hemoglobin 7.0 #*L 12.2-16.2 g/dL Hematocrit 21.6 #L 36.0-46.0 % POC Glucose 241 H 70-106 mg/dl Urine Color Light-yellow Yellow Urine Clarity Clear Clear Urine pH 5.0 5.0-9.0 Urine Specific [place] 1.018 1.001-1.035 Urine Protein Negative Negative Urine Ketones Negative Negative Urine Blood Negative Negative /uL Urine Nitrite Negative Negative Urine Bilirubin Negative Negative Urine Urobilinogen Normal Negative mg/dL Urine Leukocyte Esterase Negative Negative /uL Urine RBC 1 0 - 4 /hpf Urine Microscopic WBC 1 0-5 /HPF Urine Squamous Epithelial Cells None seen <5 /hpf Urine Bacteria Few H None Seen /hpf Urine Hyaline Casts Many 0 - 2 /lpf Urine Glucose Normal Normal mg/dL Troponin I High Sensitivity 7 </=34 ng/L Test 02/09/25 00:13 02/08/25 23:26 Range/Units Iron Level 36 L 50-170 ug/dL Total Iron Binding Capacity 293 250-425 ug/dL Percent Iron Saturation 12.3 L 15-50 % White Blood Count 12.1 H 4.4-10.8 10^3/uL Red Blood Count 1.93 L 4.0-5.20 10^6/uL Mean Corpuscular Volume 82.8 80.0-100.0 fL Mean Corpuscular Hemoglobin 25.3 L 28.0-32.0 pg Mean Corpuscular Hemoglobin Concent 30.6 L 32.0-36.0 g/dL Red Cell Distribution Width 23.7 H 11.8-14.3 % Platelet Count 252 140-450 10^3/uL Mean Platelet Volume 8.7 6.9-10.8 fL Neutrophils (%) (Auto) 90.7 H 37.0-80.0 % Lymphocytes (%) (Auto) 5.5 L 10.0-50.0 % Monocytes (%) (Auto) 3.2 0.0-12.0 % Eosinophils (%) (Auto) 0.0 0.0-7.0 % Basophils (%) (Auto) 0.6 0.0-2.0 % Neutrophils # (Auto) 10.9 H 1.6-8.6 10 ^3/uL Lymphocytes # (Auto) 0.7 0.4-5.4 10 ^3/uL Monocytes # (Auto) 0.4 0-1.3 10 ^3/uL Eosinophils # (Auto) 0 0-0.8 10 ^3/uL Basophils # (Auto) 0.1 0-0.2 10 ^3/uL Nucleated Red Blood Cells 0.4 % Prothrombin Time 11.5 9.3-11.8 sec Prothrombin Time INR 1.09 0.9-1.15 Sodium Level 140 136-145 mmol/L Potassium Level 4.4 3.5-5.1 mmol/L Chloride Level 107 98-107 mmol/L Carbon Dioxide Level 18 L 20-31 mmol/L Anion Gap 15 5-15 Blood Urea Nitrogen 49 H 9-23 mg/dL Creatinine 1.51 H 0.550-1.02 mg/dL Glomerular Filtration Rate Calc 36 >90 mL/min BUN/Creatinine Ratio 32.5 H 10.0-20.0 Serum Glucose 301 H 74-106 mg/dL Calcium Level 8.7 8.7-10.4 mg/dL Total Bilirubin 0.3 0.2-1.0 mg/dL Aspartate Amino Transferase (AST) 11 <34 U/L Alanine Aminotransferase (ALT) 13 7-40 U/L Alkaline Phosphatase 40 L 46-116 U/L B-Type Natriuretic Peptide 19.61 0-100 pg/mL Total Protein 5.2 L 5.7-8.2 g/dL Albumin 3.6 3.2-4.8 g/dL Assessment Chest pain in the setting of severe anemia Recent CVA/TIA on Xarelto and ASA therapy Preprocedural cardiovascular examination Hypertension Dyslipidemia Obesity Plan/Recommendation (Dr. Woods) The patient presents with chest pain in the setting of severe anemia. Chest pain resolved after undergoing blood transfusions. Strongly recommend neurological consultation given recent CVA/TIA and possible need for continuous anticoagulation. Upgrade to Telemetry and notify cardiology of any underlined cardiac arrhythmias. Obtain a repeat twelve-lead electrocardiogram given prolonged QTc with associated hemodynamic derangement. Avoid medications that induced prolonged QTc interval such as certain antipsychotics, antidepressants, antibiotics, antiarrhythmics, and/or anticonvulsants. Revised cardiac risk index (Alfonzo criteria): RCRI Score of 6.0% risk of , NM or cardiac arrest. Patient has no underlying history of congestive heart failure, coronary artery disease, and has an optimal functional capacity. Per Cardiology standpoint, the patient is at an acceptable-risk for moderate-risk surgery. There is no additional cardiac workup indicated prior to surgery. Thank you for allowing us to care for this patient. Please call with any questions or concerns. This medical document was created using an electronic medical record system with voice recognition software and computerized dictation system. Although this document has been carefully reviewed, there might still be some phonetic and typographical errors. Occasional wrong-word or ``sound-alike substitutions may have occurred due to the inherent limitations of voice recognition software. These areas are purely typographical due to imperfections of the software programs and do not reflect any compromise in the patient's medical care. Please read the chart carefully and recognize, using context, where these substitutions have occurred. Plan discussed with: Patient, Other NYHA Physical activity limitations: NA Date of Service: Feb 09, 2025 Billing Provider: NGUYỄN HOLLINS Cardiology Common Codes: [id number] INP/OBS CARE (High) NGUYỄN HOLLINS [facility] Feb 09, 2025 14:24
--- NOTE | 2025-02-09 15:13 | ECG ---
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
[2025-02-09] MEDS: ACCU-CHEK COMFORT CURVE STRIP VI SCH (16:10)
[2025-02-09] MEDS: InsuLIN REG 1unit/0.01ml Soln (100units/ml) SC SCH (16:19)
[2025-02-09] MEDS: SODIUM CHLORIDE 0.9% 1,000 ML IV ONE (17:18)
[2025-02-09 18:50] LABS: Hematocrit 20.7 % (36.0-46.0)
[2025-02-09 18:59] LABS: Hemoglobin 6.7 g/dL (12.2-16.2)
[2025-02-09] MEDS: SUCRALFATE 1 GM/10 ML ORAL SUSP PO SCH (21:39)
[2025-02-10] VITALS (11 sets, daily range): BP systolic 113–140; BP diastolic 35–63; PULSE 59–79; RESP 16–18; TEMP 97.5–98.5; O2SAT 97–100
[2025-02-10 06:35] LABS: Basophils # (auto) 0 10 ^3/uL (0-0.2); Eosinophils # (auto) 0.1 10 ^3/uL (0-0.8); Lymphocytes # (auto) 0.8 10 ^3/uL (0.4-5.4); Monocytes # (auto) 0.6 10 ^3/uL (0-1.3); White Blood Cell 6.6 10^3/uL (4.4-10.8)
[2025-02-10 06:37] LABS: Basophils % (auto) 0.6 % (0.0-2.0); Hematocrit 21.5 % (36.0-46.0); Lymphocytes % (auto) 12.1 % (10.0-50.0); Mean Corpuscular Hemoglobin 27.8 pg (28.0-32.0); Mean Corpuscular Hgb Conc. 32.2 g/dL (32.0-36.0); Mean Corpuscular Volume 86.3 fL (80.0-100.0); Neutrophils # (auto) 5.1 10 ^3/uL (1.6-8.6); Neutrophils % (auto) 77.3 % (37.0-80.0); Nucleated Red Blood Cells % 0.5 %; Platelet Count (auto) 198 10^3/uL (140-450); Red Blood Cells 2.49 10^6/uL (4.0-5.20); Red Cell Distribution Width 20.8 % (11.8-14.3)
[2025-02-10 06:39] LABS: Hemoglobin 6.9 g/dL (12.2-16.2)
--- NOTE | 2025-02-10 13:07 | DVHPN2 ---
Subjective No new complaint Patient has been seen by Cardiology Being transfused PRBC Changes from previous H/P or p: No Changes Objective Vitals Vital Signs Date Time Temp Pulse Resp B/P (MAP) Pulse Ox O2 Delivery O2 Flow Rate FiO2 02/10/25 12:48 97.6 62 18 136/52 (80) 97 97.6 02/09/25 22:30 Room Air* 0 21 Intake/Output Intake and Output 02/10/25 07:00 Intake Total 1000 ml Output Total 0 ml Balance 1000 ml Intake Oral 0 ml Tube Feeding 0 ml Blood Product 1000 ml Other 0 ml Output Urine Total 0 ml Urine/Stool Mix 0 ml Gastric Drainage Total 0 ml Emesis 0 ml Chest Tube Drainage Total 0 ml Drainage Total 0 ml General Appearance: Alert, Oriented X3, Cooperative, No acute distress, mild distress, moderate distress, severe distress, Other Lungs: Clear to auscultation, Normal air movement, Other Cardiovascular: Regular rate, Normal S1, Normal S2, No murmurs, Gallops, Rubs, Other Abdomen: Normal bowel sounds, Soft, No tenderness, No hepatospenomegaly, No masses, Other Medications Current Medications Medications Dose Ordered Sig/Chris Route Start Time Stop Time Status Last Admin Dose Admin Losartan Potassium 100 mg DAILY PO 02/09/25 10:00 02/09/25 10:31 100 MG Ferrous Sulfate 325 mg BIDWM PO 02/09/25 08:00 02/09/25 16:20 325 MG Ondansetron HCl 4 mg Q4HP PRN IV 02/09/25 01:00 Pantoprazole Sodium 40 mg DAILY@0600 PO 02/09/25 06:00 02/09/25 09:22 40 MG Sucralfate 1 gm BID@0600,2200 PO 02/09/25 22:00 02/09/25 21:39 1 GM Diagnostic Test (Pha) 1 strip ACHS 02/09/25 17:00 02/10/25 07:00 1 STRIP Insulin Human Regular ACHS SC 02/09/25 17:00 02/09/25 21:41 3 UNITS Dextrose 50 ml UD PRN IV 02/09/25 13:45 Laboratory Results Laboratory Tests 02/08/25 23:26 02/10/25 05:19 Urinalysis Test 02/09/25 08:52 Urine Color Light-yellow (Yellow) Urine Clarity Clear (Clear) Urine pH 5.0 (5.0-9.0) Urine Specific [place] 1.018 (1.001-1.035) Urine Protein Negative (Negative) Urine Ketones Negative (Negative) Urine Blood Negative /uL (Negative) Urine Nitrite Negative (Negative) Urine Bilirubin Negative (Negative) Urine Urobilinogen Normal mg/dL (Negative) Urine Leukocyte Esterase Negative /uL (Negative) Urine RBC 1 /hpf (0 - 4) Urine Microscopic WBC 1 /HPF (0-5) Urine Squamous Epithelial Cells None seen /hpf (<5) Urine Bacteria Few /hpf (None Seen) H Urine Hyaline Casts Many /lpf (0 - 2) Urine Glucose Normal mg/dL (Normal) Labs and/or images reviewed: Labs reviewed by me, Image(s) reviewed by me Assessment/Plan Assessment/Plan Severe anemia History of TIA on Xarelto Plan: Discussed with Dr. Vela Cardiology has cleared patient with moderate risk for any procedure Scheduled for EGD today. Discussed risks, benefits of procedure and sedation including risks of stroke and cardiac arrest with sedation, patient understands and agrees NPO Plan discussed with: Patient, Other (RN) My Orders Orders - ALEKSANDR GARCIA Procedure Category Date Status Time Obtain Consent For: ORDERS 02/10/25 Transmitted 13:02 Obtain Consent For ZEB 02/10/25 In Process Anesthesia 13:02 Date of Service: Feb 10, 2025 Billing Provider: ALEKSANDR GARCIA Common Visit Codes: [id number] INP/OBS CARE(HIGH) ALEKSANDR GARCIA Feb 10, 2025 13:07
[2025-02-10] MEDS ORDERED: SODIUM CHLORIDE LOCK 10 ML ONE (13:31)
[2025-02-10 14:30] LABS: Hematocrit 26.6 % (36.0-46.0); Hemoglobin 8.8 g/dL (12.2-16.2)
[2025-02-10] MEDS: LIDOCAINE VISCOUS 2% 15ML UD ONE (15:51)
[2025-02-10] MEDS: MIDAZOLAM HCL 5 MG/ML-1ML VIAL ONE (15:52)
[2025-02-10] MEDS: fentaNYL CITRATE 100 MCG/2 ML VL ONE (15:52)
[2025-02-10] MEDS: diphenhdrAMINE HCL 50 MG/1 ML VL ONE (15:52)
--- NOTE | 2025-02-10 16:14 | DVHOP2 ---
Operative Report DATE OF OPERATION: 02/10/25 PROCEDURE: Upper Endoscopy with biopsy PREOPERATIVE INDICATION: The patient is a 75 -year-old female undergoing endoscopy for anemia POSTOPERATIVE DIAGNOSES: 1. 2 cm sliding-type hiatal hernia with slightly irregular squamocolumnar junction but no significant erosive esophagitis 2. Minimal gastritis otherwise normal examination up to the 2nd and 3rd part of the duodenum with good bile drainage and no active bleeding PROCEDURE PERFORMED BY: Ponce Vela GI NURSE: Elyse SCOPE: Olympus videoendoscope. ASA CLASS: 2 PREOPERATIVE MEDICATIONS: Versed 3 mg, Fentanyl 50 mcg, Benadryl 50 mg I administered moderate sedation throughout this _8_ minutes procedure. An independent trained observer pushed medications at my direction, and monitored the patient's level of consciousness and physiological status throughout. PROCEDURE IN DETAIL: After obtaining an informed consent, the patient was placed on left lateral decubitus position. The patient was then sedated with the above medications. A bite block was placed between her teeth. The endoscope was then passed through the oropharynx, into the esophagus, and through the stomach and pylorus up to the second and third part of the duodenum. The endoscope was then withdrawn. The 2nd and 3rd part of the duodenum and the duodenal bulb were normal. Duodenal biopsies were obtained The pre-pyloric area antrum and body showed minimal gastritis. Gastric biopsies were obtained. On retroflexion the fundus cardia and angularis were normal. The endoscope was then withdrawn into the distal esophagus She had a 2-3 cm sliding-type hiatal hernia with no significant erosive esophagitis slightly irregular squamocolumnar junction. GE junction biopsies were obtained The remaining distal and proximal esophagus and oropharynx were unremarkable The patient tolerated the procedure well without difficulty. COMPLICATIONS : None SPECIMENS: Biopsies Gastric biopsies GE junction biopsies DISPOSITION: Transfer back to the floor Stable PLAN: 1. Await for biopsy result 2. Will place pt on Protonix 40 mg p.o. daily 3. Resume GI soft diet 4. Small-bowel follow-through x-ray 5. Outpatient follow up with me in 4-6 weeks to review results and discuss further management PONCE VELA MD Feb 10, 2025 16:14
[2025-02-10] MEDS ORDERED: MELATONIN 5 MG TAB PO SCH (22:00)
--- NOTE | 2025-02-10 23:01 | DVHSR ---
APPROVED REPORT EXAM: Two-dimensional and M-mode echocardiogram with Doppler and color Doppler. Blood Pressure: 120/35 mmHg INDICATION Pre-Op RISK FACTORS Height: 68, Weight: 220 DIMENSIONS LVDd (3.8-5.7cm)LA (2D)4.6 (1.9-4.0cm)Aortic Root4.3 (2.0-3.7cm) LVDs (2.5-4.0cm)LA (MM) (1.9-4.0cm)Aortic Cusp Exc2.4 (1.5-2.0cm) EF (%) 63.0 (55-70%)Rt. Atrium4.8 (1.9-4.0cm)Asc. Aorta cm Mitral Valve MitralMitral Stenosis E wave0.95m/sMV Mean GR.mmHg A wave1.25m/sMV Peak GR.mmHg E/A ratio0.82D MVAcm2 DECEL [id number] 1/2 [id number] IVRTmsDop MVA1.84cm2 Aortic Valve Aortic ValveAortic Stenosis V11.16m/Jessee Mean GR.8mmHg V21.92m/Jessee Peak GR.15mmHg LVOT Diameter2.3 (1.8-2.4cm)Doppler AVA2.51cm2 Pulmonic Valve V21.07m/s Tricuspid Valve TR Velocity2.48m/s [id number] Other Information Technically limited study due to patient breathing. Conclusion NORMAL LV EF AND IS 65% NORMAL VALVES SLIGHTLY DILATED LA NO EFFUSION NORMAL RV FUNCTION
[2025-02-11] VITALS (7 sets, daily range): BP systolic 111–130; BP diastolic 45–68; PULSE 56–65; RESP 18–20; TEMP 97.4–99.1; O2SAT 98–99
[2025-02-11] MEDS: MELATONIN 5 MG TAB PO SCH (01:07)
[2025-02-11] MEDS ORDERED: EZ PAQUE SUSP 12OZ BTL ONE (10:52)
[2025-02-11] MEDS ORDERED: SUCR1SUS26 PO (14:18)
[2025-02-11] MEDS ORDERED: FER325T PO (14:18)
--- NOTE | 2025-02-11 14:18 | DVHDS2 ---
Discharge Summary Date of Admission Feb 09, 2025 at 00:53 Labs/Diagnostic Data: Laboratory Results Test 02/11/25 12:33 02/10/25 14:15 02/10/25 05:19 02/09/25 08:52 POC Glucose 146 mg/dl (70-106) Hemoglobin 8.8 g/dL (12.2-16.2) Hematocrit 26.6 % (36.0-46.0) White Blood Count 6.6 10^3/uL (4.4-10.8) Red Blood Count 2.49 10^6/uL (4.0-5.20) Mean Corpuscular Volume 86.3 fL (80.0-100.0) Mean Corpuscular Hemoglobin 27.8 pg (28.0-32.0) Mean Corpuscular Hemoglobin Concent 32.2 g/dL (32.0-36.0) Red Cell Distribution Width 20.8 % (11.8-14.3) Platelet Count 198 10^3/uL (140-450) Mean Platelet Volume 8.5 fL (6.9-10.8) Neutrophils (%) (Auto) 77.3 % (37.0-80.0) Lymphocytes (%) (Auto) 12.1 % (10.0-50.0) Monocytes (%) (Auto) 9.0 % (0.0-12.0) Eosinophils (%) (Auto) 1.0 % (0.0-7.0) Basophils (%) (Auto) 0.6 % (0.0-2.0) Neutrophils # (Auto) 5.1 10 ^3/uL (1.6-8.6) Lymphocytes # (Auto) 0.8 10 ^3/uL (0.4-5.4) Monocytes # (Auto) 0.6 10 ^3/uL (0-1.3) Eosinophils # (Auto) 0.1 10 ^3/uL (0-0.8) Basophils # (Auto) 0 10 ^3/uL (0-0.2) Nucleated Red Blood Cells 0.5 % Urine Color Light-yellow (Yellow) Urine Clarity Clear (Clear) Urine pH 5.0 (5.0-9.0) Urine Specific [place] 1.018 (1.001-1.035) Urine Protein Negative (Negative) Urine Ketones Negative (Negative) Urine Blood Negative /uL (Negative) Urine Nitrite Negative (Negative) Urine Bilirubin Negative (Negative) Urine Urobilinogen Normal mg/dL (Negative) Urine Leukocyte Esterase Negative /uL (Negative) Urine RBC 1 /hpf (0 - 4) Urine Microscopic WBC 1 /HPF (0-5) Urine Squamous Epithelial Cells None seen /hpf (<5) Urine Bacteria Few /hpf (None Seen) Urine Hyaline Casts Many /lpf (0 - 2) Urine Glucose Normal mg/dL (Normal) Test 02/09/25 02:45 02/09/25 00:13 02/08/25 23:26 Troponin I High Sensitivity 7 ng/L (</=34) Iron Level 36 ug/dL (50-170) Total Iron Binding Capacity 293 ug/dL (250-425) Percent Iron Saturation 12.3 % (15-50) Prothrombin Time 11.5 sec (9.3-11.8) Prothrombin Time INR 1.09 (0.9-1.15) Sodium Level 140 mmol/L (136-145) Potassium Level 4.4 mmol/L (3.5-5.1) Chloride Level 107 mmol/L (98-107) Carbon Dioxide Level 18 mmol/L (20-31) Anion Gap 15 (5-15) Blood Urea Nitrogen 49 mg/dL (9-23) Creatinine 1.51 mg/dL (0.550-1.02) Glomerular Filtration Rate Calc 36 mL/min (>90) BUN/Creatinine Ratio 32.5 (10.0-20.0) Serum Glucose 301 mg/dL (74-106) Calcium Level 8.7 mg/dL (8.7-10.4) Total Bilirubin 0.3 mg/dL (0.2-1.0) Aspartate Amino Transferase (AST) 11 U/L (<34) Alanine Aminotransferase (ALT) 13 U/L (7-40) Alkaline Phosphatase 40 U/L (46-116) B-Type Natriuretic Peptide 19.61 pg/mL (0-100) Total Protein 5.2 g/dL (5.7-8.2) Albumin 3.6 g/dL (3.2-4.8) Other Laboratory Tests 02/10/25 14:15 02/10/25 05:19 02/08/25 23:26 Discharge Statement: "Patient was advised to return to the ER or call 911 if any headaches, dizziness, shortness of breath, chest pain, abdominal pain, bleeding, fevers, or worsening of medical condition. Patient was counseled about treatment plan, medications, possible side effects, patientverbalized understanding. All questions were answered to the best of my ability. This discharge took greater then 30 minutes in planning, reviewing documentation, counseling the patient, and discussing with other team members." ASSESSMENT ASSESSMENT Assessment Date of Service: Feb 11, 2025 Billing Provider: ENRICO RODGERS DO Common Visit Codes: 20231-[id number] DISCH DAY >30min ENRICO RODGERS DO Feb 11, 2025 14:18
--- NOTE | 2025-02-11 14:18 | DVHPN2 ---
Progress Note - Dictate Date Seen: Feb 11, 2025 Medical Necessity Reason Pt with a Central, PICC or Fol: No Subjective No new complaints Patient is resting comfortably Undergoing small-bowel series Hb was up to 8.8 EGD findings were reviewed with the patient Operative Report DATE OF OPERATION: 02/10/25 PROCEDURE: Upper Endoscopy with biopsy PREOPERATIVE INDICATION: The patient is a 75 -year-old female undergoing endoscopy for anemia POSTOPERATIVE DIAGNOSES: 1. 2 cm sliding-type hiatal hernia with slightly irregular squamocolumnar junction but no significant erosive esophagitis 2. Minimal gastritis otherwise normal examination up to the 2nd and 3rd part of the duodenum with good bile drainage and no active bleeding vital signs Vital Sign Date Time Temp Pulse Resp B/P (MAP) Pulse Ox O2 Delivery O2 Flow Rate FiO2 02/11/25 09:24 128/46 02/11/25 09:00 97.6 57 20 99 97.6 02/11/25 08:00 Room Air* 0 21 Total Intake and Output 02/10/25 02/10/25 02/11/25 15:00 23:00 07:00 Intake Total 600 ml 0 ml 600 ml Balance 600 ml 0 ml 600 ml medications Current Medications Medications Dose Ordered Sig/Chris Route Start Time Stop Time Status Last Admin Dose Admin Losartan Potassium 100 mg DAILY PO 02/09/25 10:00 02/11/25 09:24 100 MG Ferrous Sulfate 325 mg BIDWM PO 02/09/25 08:00 02/11/25 08:33 325 MG Ondansetron HCl 4 mg Q4HP PRN IV 02/09/25 01:00 Pantoprazole Sodium 40 mg DAILY@0600 PO 02/09/25 06:00 02/11/25 05:41 40 MG Sucralfate 1 gm BID@0600,2200 PO 02/09/25 22:00 02/11/25 05:41 1 GM Diagnostic Test (Pha) 1 strip ACHS 02/09/25 17:00 02/11/25 11:30 1 STRIP Insulin Human Regular ACHS SC 02/09/25 17:00 02/09/25 21:41 3 UNITS Dextrose 50 ml UD PRN IV 02/09/25 13:45 Melatonin 10 mg HS PO 02/11/25 00:58 02/11/25 01:07 10 MG objective General: NAD, AAOX3 Chest: lung sims clear to auscultation Heart: RRR, no murmur Abdomen: non-distended, no tenderness to palpation, +BS laboratory and microbiology Laboratory Tests 02/10/25 14:15 02/10/25 05:19 02/08/25 23:26 Test 02/08/25 23:26 Range/Units Serum Glucose 301 H 74-106 mg/dL Problems(with codes): (1) Hiatal hernia (2) Anemia Prognosis Plan Patient is awaiting completion of small-bowel series Discharge planning is going Maintained on PPI Outpatient follow up with GI Services for ongoing issues Advance diet as tolerated Plan discussed with: Patient PONCE HORVATH MD Feb 11, 2025 14:18
--- NOTE | 2025-02-11 15:21 | DVH ---
Procedure: XY SMALL BOWEL SERIES-W BARIUM Exam Date: 02/11/2025 02:26 PM Reason for study/Clinical History: anemia; hx lodged capsule in past Comparison Study: None Technique: Single contrast small bowel series performed. Findings: Initial optometry assistant view of the abdomen and pelvis appears demonstrates no acute process. Contrast is identified within the colon by 3.5 hours. This represents a normal small bowel transit t aydin. Small bowel loops are normal in size. Normal mucosal pattern. No evidence of small bowel obstructi on, stricture, or mucosal abnormality. The terminal ileum is well visualized and is unremarkable. IMPRESSION: Normal small bowel series. END IMPRESSION:
[2025-02-11] MEDS ORDERED: MELATONIN 5 MG TAB PO SCH (22:00)
[2025-02-12 05:00] VITALS: BP 150/74; PULSE 59; RESP 18; TEMP 98.7; O2SAT 99
[2025-02-12 08:00] VITALS: PULSE 55; PULSE 68; RESP 18; O2SAT 98
[2025-02-12 09:00] VITALS: BP 136/41; PULSE 65; RESP 19; TEMP 98.3; O2SAT 100
--- NOTE | 2025-02-12 10:06 | DVHPN2 ---
Progress Note - Dictate Date Seen: Feb 12, 2025 Medical Necessity Reason Pt with a Central, PICC or Fol: No Subjective No new complaints Patient is resting comfortably Undergoing small-bowel series Hb was up to 8.8 on 02/10 EGD findings were reviewed with the patient Operative Report DATE OF OPERATION: 02/10/25 PROCEDURE: Upper Endoscopy with biopsy PREOPERATIVE INDICATION: The patient is a 75 -year-old female undergoing endoscopy for anemia POSTOPERATIVE DIAGNOSES: 1. 2 cm sliding-type hiatal hernia with slightly irregular squamocolumnar junction but no significant erosive esophagitis 2. Minimal gastritis otherwise normal examination up to the 2nd and 3rd part of the duodenum with good bile drainage and no active bleeding vital signs Vital Sign Date Time Temp Pulse Resp B/P (MAP) Pulse Ox O2 Delivery O2 Flow Rate FiO2 02/12/25 09:09 122/55 02/12/25 08:00 68 18 98 Room Air* 0 21 02/12/25 05:00 98.7 98.7 Total Intake and Output 02/11/25 02/11/25 02/12/25 15:00 23:00 07:00 Intake Total 400 ml 700 ml Output Total 800 ml Balance -400 ml 700 ml medications Current Medications Medications Dose Ordered Sig/Chris Route Start Time Stop Time Status Last Admin Dose Admin Losartan Potassium 100 mg DAILY PO 02/09/25 10:00 02/12/25 09:09 100 MG Ferrous Sulfate 325 mg BIDWM PO 02/09/25 08:00 02/12/25 09:08 325 MG Ondansetron HCl 4 mg Q4HP PRN IV 02/09/25 01:00 Pantoprazole Sodium 40 mg DAILY@0600 PO 02/09/25 06:00 02/12/25 05:43 40 MG Sucralfate 1 gm BID@0600,2200 PO 02/09/25 22:00 02/12/25 05:43 1 GM Diagnostic Test (Pha) 1 strip ACHS 02/09/25 17:00 02/12/25 05:43 1 STRIP Insulin Human Regular ACHS SC 02/09/25 17:00 02/12/25 05:55 3 UNITS Dextrose 50 ml UD PRN IV 02/09/25 13:45 Melatonin 10 mg HS PO 02/11/25 00:58 02/11/25 21:20 10 MG objective General: NAD, AAOX3 Chest: lung sims clear to auscultation Heart: RRR, no murmur Abdomen: non-distended, no tenderness to palpation, +BS laboratory and microbiology Laboratory Tests 02/10/25 14:15 02/10/25 05:19 02/08/25 23:26 Test 02/08/25 23:26 Range/Units Serum Glucose 301 H 74-106 mg/dL Problems(with codes): (1) Anemia (2) Hiatal hernia (3) Frequent falls Prognosis Plan Patient's stool for occult blood was positive likely related to recent endoscopy biopsy Patient has also been on blood thinners and Xarelto or Eliquis We will check a repeat CBC today and if it is stable then patient is cleared for discharge She can follow up with GI Services for outpatient elective colonoscopy However if she shows signs of any recurrent ongoing bleeding please notify me Plan discussed with: Other (Nurse) PONCE HORVATH MD Feb 12, 2025 10:06
[2025-02-12 12:01] LABS: Basophils # (auto) 0 10 ^3/uL (0-0.2); Basophils % (auto) 0.6 % (0.0-2.0); Eosinophils # (auto) 0.1 10 ^3/uL (0-0.8); Eosinophils % (auto) 2.6 % (0.0-7.0); Hemoglobin 8.6 g/dL (12.2-16.2); Lymphocytes # (auto) 0.8 10 ^3/uL (0.4-5.4); Lymphocytes % (auto) 14.1 % (10.0-50.0); Mean Corpuscular Hemoglobin 27.7 pg (28.0-32.0); Mean Corpuscular Hgb Conc. 31.8 g/dL (32.0-36.0); Monocytes # (auto) 0.4 10 ^3/uL (0-1.3); Monocytes % (auto) 6.6 % (0.0-12.0); Neutrophils # (auto) 4.3 10 ^3/uL (1.6-8.6); Neutrophils % (auto) 76.1 % (37.0-80.0); Nucleated Red Blood Cells % 0.1 %; Platelet Count (auto) 195 10^3/uL (140-450); Red Cell Distribution Width 18.5 % (11.8-14.3); White Blood Cell 5.7 10^3/uL (4.4-10.8)
[2025-02-12 13:00] VITALS: BP 137/57; PULSE 81; RESP 18; TEMP 98.3; O2SAT 98
[2025-02-12 17:19] VITALS: BP 133/59; PULSE 64; RESP 18; TEMP 98.4; O2SAT 99
[2025-02-13] MEDS ORDERED: SUCR1TAB31 OR (14:03)
[2025-02-13] MEDS ORDERED: FER325T PO (14:03)
== END 2025-02-12 18:56 | disposition home or self-care (01) | DRG 392 ==
LOC: ER 22:29 → EDBD 22:29 → OVERFLOW 02-09 00:53 → TELE-WESTW 02-09 01:02 → WEST WING 02-09 22:29 → TELE-WESTW 02-10 23:19
PROVIDERS: ADMIT Internal Medicine; ATTEND Internal Medicine
PROC: 30233N1 Transfusion of Nonautologous Red Blood Cells into Peripheral Vein, Percutaneous Approach (ICD-10-PCS; principal; 2025-02-09)
PROC: 0DB48ZX Excision of Esophagogastric Junction, Via Natural or Artificial Opening Endoscopic, Diagnostic (ICD-10-PCS; 2025-02-10)
PROC: 0DB68ZX Excision of Stomach, Via Natural or Artificial Opening Endoscopic, Diagnostic (ICD-10-PCS; 2025-02-10)
DX: K29.70 Gastritis, unspecified, without bleeding (principal); R71.0 Precipitous drop in hematocrit; K44.9 Diaphragmatic hernia without obstruction or gangrene; D64.9 Anemia, unspecified; E66.9 Obesity, unspecified; M54.32 Sciatica, left side; I50.9 Heart failure, unspecified; I11.0 Hypertensive heart disease with heart failure; E78.5 Hyperlipidemia, unspecified; R29.6 Repeated falls; Z86.73 Personal history of transient ischemic attack (TIA), and cerebral infarction without residual deficits; Z88.5 Allergy status to narcotic agent; Z83.3 Family history of diabetes mellitus; Z82.49 Family history of ischemic heart disease and other diseases of the circulatory system; Z79.82 Long term (current) use of aspirin; Z79.899 Other long term (current) drug therapy; Z68.34 Body mass index [BMI] 34.0-34.9, adult
CPT/HCPCS: 36415; 43239; 70450; 71045; 72131; 74250; 80053; 81001; 82270; 82962; 83540; 83550; 83880; 84484; 85014; 85018; 85025; 85610; 86850; 86900; 86901; 86920; 93005; 93306; 96374; 99291; G0378; J1815; J2250; J2405